=== PATIENT | male | born 1995 | race Caucasian/White ===

== ENCOUNTER 2025-03-06 07:28 | Emergency (ER) | payer OTHER, SELFPAY ==
[2025-03-06 07:30] VITALS: BP 129/77; PULSE 57; RESP 14; TEMP 36.1; O2SAT 97; BMI 29.4
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
[2025-03-06] MEDS: IBUPROFEN 400 MG TABLET 800 MG PO (07:43)
[2025-03-06 08:38] VITALS: BP 134/67; PULSE 68; RESP 18; O2SAT 98
== END 2025-03-06 08:39 | disposition home or self-care (01) ==
PROVIDERS: Emergency Provider Emergency Medicine
DX: S16.1XXA Strain of muscle, fascia and tendon at neck level, initial encounter (principal); V89.2XXA Person injured in unspecified motor-vehicle accident, traffic, initial encounter
CPT/HCPCS: 72040; 99283